=== PATIENT | female | born 1960 | race Caucasian/White ===

== ENCOUNTER 2019-05-04 18:07 | Emergency (ER) | payer MEDICAID ==
[~2019-05-04] VITALS: Ht 152.4 cm; Wt 104.3 kg
[2019-05-04 18:35] VITALS: BP 154/95
[2019-05-04] MEDS ORDERED: ALBUTEROL FS 2.5 MG/3 ML VIAL.NEB ONE (19:33)
[2019-05-04] MEDS: ALBUTEROL FS 2.5 MG/3 ML VIAL.NEB NEB ONE (19:39)
== END 2019-05-04 20:51 | disposition home or self-care (01) ==
LOC: ER 18:12
DX: J20.9 Acute bronchitis, unspecified (principal); J44.9 Chronic obstructive pulmonary disease, unspecified; E11.9 Type 2 diabetes mellitus without complications; Z98.890 Other specified postprocedural states; Z88.8 Allergy status to other drugs, medicaments and biological substances; Z88.6 Allergy status to analgesic agent
CPT/HCPCS: 71045-TC

== ENCOUNTER 2024-03-24 22:13 | Emergency (ER) | payer MEDICAID ==
[~2024-03-24] VITALS: Ht 154.9 cm; Wt 96.6 kg
[2024-03-25] MEDS ORDERED: AMOX/CLAVULANATE 875 MG TABLET ONE (01:44)
[2024-03-25] MEDS ORDERED: TDAP [DIPH/PERTUSSIS/TET] 0.5 ML VIAL IM ONE (01:45)
[2024-03-25] MEDS: AMOX/CLAVULANATE 875 MG TABLET PO ONE (01:49)
[2024-03-25] MEDS: TDAP [DIPH/PERTUSSIS/TET] 0.5 ML VIAL IM ONE (01:49)
[2024-03-25] MEDS ORDERED: AMOX-430 PO (03:46)
[2024-03-25 04:05] VITALS: BP 132/80; TEMP 97.8; O2SAT 98
== END 2024-03-25 04:06 | disposition home or self-care (01) ==
LOC: ER 22:17
DX: S62.647A Nondisplaced fracture of proximal phalanx of left little finger, initial encounter for closed fracture (principal); S90.112A Contusion of left great toe without damage to nail, initial encounter; E11.9 Type 2 diabetes mellitus without complications; E78.5 Hyperlipidemia, unspecified; I10 Essential (primary) hypertension; J44.9 Chronic obstructive pulmonary disease, unspecified; M79.642 Pain in left hand; Z88.6 Allergy status to analgesic agent; W10.9XXA Fall (on) (from) unspecified stairs and steps, initial encounter; Y93.89 Activity, other specified; Y92.89 Other specified places as the place of occurrence of the external cause; Y99.8 Other external cause status
CPT/HCPCS: 73140-TC; 73660-TC; 90715

== ENCOUNTER 2025-01-17 16:30 | Emergency (ER) | payer OTHER ==
[~2025-01-17] VITALS: Ht 149.9 cm; Wt 97.1 kg
[~2025-01-17 16:30] MED LIST: AMOX-430 PO
[2025-01-17 17:01] LABS: PLATELET COUNT (AUTO) 249 K/uL (150-450); RED BLOOD CELL COUNT(AUTO) 4.74 MIL/uL (4.0-5.2); RED CELL DISTRIBUTION WIDTH 13.6 % (11.5-15.0); WHITE BLOOD COUNT (AUTO) 9.3 K/uL (4.3-11.0)
[2025-01-17 17:06] LABS: APPEARANCE,URINE CLEAR (CLEAR); BLOOD, URINE Negative Ery/uL (NEGATIVE); LEUKOCYTE ESTERASE ,URINE Negative (NEGATIVE); NITRITE, URINE NEGATIVE (NEGATIVE); UGLUCOSE >=1000 mg/dL (NEGATIVE)
[2025-01-17 17:08] LABS: CALCIUM, SERUM 8.8 mg/dL (8.5-10.1); CREATININE 0.8 mg/dL (0.6-1.3); SODIUM SERUM 138.0 mmol/L (136-145); UREA NITROGEN, BLOOD 16.0 mg/dL (7-18)
[2025-01-17 17:14] LABS: ASPARTATE AMINOTRANSFERASE 16.0 U/L (15-37); TOTAL PROTEIN, SERUM 7.5 g/dL (6.4-8.2)
[2025-01-17 17:33] VITALS: BP 135/80; O2SAT 98
== END 2025-01-17 17:34 | disposition home or self-care (01) ==
LOC: ER 16:40
DX: R30.0 Dysuria (principal); R35.0 Frequency of micturition; E11.9 Type 2 diabetes mellitus without complications; I11.9 Hypertensive heart disease without heart failure; E78.5 Hyperlipidemia, unspecified; J44.9 Chronic obstructive pulmonary disease, unspecified; Z88.6 Allergy status to analgesic agent
CPT/HCPCS: 36415; 80048-TC; 80076-TC; 85025-TC